=== PATIENT | female | born 2000 | race Caucasian/White ===

== ENCOUNTER → 2022-02-06 14:06 | Outpatient (BNVA) | payer SELFPAY | PROVIDERS: Family Provider Family Medicine; PCP Family Medicine; Visit Provider Nurse Practitioner Family | DX: R39.9 Unspecified symptoms and signs involving the genitourinary system (principal); N39.0 Urinary tract infection, site not specified | CPT/HCPCS: 81003; 87086 ==

== ENCOUNTER → 2023-10-29 13:06 | Outpatient (BNVA) | payer OTHER, SELFPAY | PROVIDERS: Family Provider Family Medicine; PCP Family Medicine; Visit Provider Emergency Medicine | DX: R39.9 Unspecified symptoms and signs involving the genitourinary system (principal); N30.01 Acute cystitis with hematuria | CPT/HCPCS: 81000 ==

== ENCOUNTER 2024-04-24 21:31 | Inpatient (IN) | payer OTHER, SELFPAY ==
[2024-04-24] VITALS (8 sets, daily range): BP systolic 119–144; BP diastolic 63–82; PULSE 95–108; RESP 18; TEMP 36.5; BMI 46.6
[2024-04-24] MEDS: ampicillin 2,000 MG in sodium chloride 0.9% (plus) 50 ML 100 MG IV (19:57)
[2024-04-24 20:08] LABS: Basophils % 0.2 %; Eosinophils # 0.3 10^3/uL (0.0-0.8); Eosinophils % 4.1 %; Hematocrit 37.4 % (36-47); Lymphocytes # 1.4 10^3/uL (0.8-4.8); Lymphocytes % 17.2 %; Mean Corpuscular HGB Conc 32.6 g/dL (30-55); Mean Corpuscular Hemoglobin 28.9 pg (27-33); Mean Corpuscular Volume 88.6 fl (85-98); Mean Platelet Volume 10.1 fL (7.4-10.4); Monocytes # 0.4 10^3/uL (0.2-0.9); Monocytes % 5.5 %; Neutrophils # 5.78 10^3/uL (1.8-7.7); Nucleated Red Blood Cells % 0 %; Platelet Count 187 10^3/cmm (157-399); Red Blood Count 4.22 10^6/uL (3.85-5.65); Red Cell Distribution Width 14.2 % (12.1-15.1); White Blood Count 8.03 10^3/uL (3.29-11.43)
[2024-04-24] MEDS: oxytocin 30 UNIT/500 ML BAG IV (22:34)
[2024-04-25] VITALS (71 sets, daily range): BP systolic 103–166; BP diastolic 54–83; PULSE 87–176; RESP 16–18; TEMP 36.3–37.1; O2SAT 96–100
[2024-04-25] MEDS: ampicillin 1,000 MG in sodium chloride 0.9% (plus) 50 ML 100 MG IV ×5 (00:28→16:31)
[2024-04-25] MEDS: lactated ringers 1,000 ML 999 ML (00:55)
[2024-04-25] MEDS: sodium chloride 0.9% 1,000 ML 999 ML IV ×2 (02:04→06:47)
--- NOTE | 2024-04-25 02:23 | ANES.PROC ---
Anesthesia Procedures Procedure/Date: 04/25/24 Epidural: Time Out Performed: Yes Consents Signed: Procedure Consent Consent: requested by attending/covering physician, from patient, risks and benefits reviewed and patient agrees to proceed Lumbar Level: L3-L4 Epidural position: sitting Epidural procedure: sterile prep of area, 1% lidocaine to numb the area, 18 g needle, neg for paresthesia, test dose given, 1.5% xylocaine 1:200k epi (5cc), 0.2% Ropivacaine bolus ml, placed PCEA, no systemic response, sterile dressing applied, L.U.D. no apparent complications and 0.2% Ropiavacaine @ mls/hr (5cc and Fentanyl 100mcg) Additional Comments: Pt tolerated well
--- NOTE | 2024-04-25 02:26 | ANES.PAUD2 ---
Pre-Anesthetic Update Pre-Anesthetic Assessment: Date of Surgery/Procedure: 04/25/24 Any changes to Pre-Anesthetic Assessment?: No Labs Last 48hrs: Short CBC 04/24/24 Range/Units 19:55 WBC 8.03 (3.29-11.43) 10^ 3/uL Hgb 12.20 (11.27-16.99) g/ dL Hct 37.4 (36-47) % MCV 88.6 (85-98) fl Plt Count 187 (157-399) 10^3/c mm Neut % (Auto) 72.0 % Neut # (Auto) 5.78 (1.8-7.7) 10^3/u L Blood Bank 04/24/24 19:55 Blood Type B Positive Rho(D) Type Rh positive Antibody Screen Negative Vitals: Temperature 97.8 F 04/25/24 00:37 Temperature Source Oral 04/25/24 00:37 Pulse Rate 111 H 04/25/24 02:23 Pulse Rhythm Regular 04/24/24 19:00 Pulse Strength 3+ Normal 04/24/24 19:00 Respiratory Rate 18 04/24/24 21:49 Respiratory Effort Spontaneous, Non- Labored 04/24/24 19:00 Respiratory Depth Normal 04/24/24 19:00 Respiratory Patter n Normal 04/24/24 19:00 Blood Pressure 133/73 04/25/24 02:23 Blood Pressure Pos ition Semi Fowlers 04/24/24 21:49 Pulse Oximetry 97 04/25/24 02:22 Oxygen Delivery Me thod Room Air 04/24/24 21:49 Cardiac Studies: No Data to Display
[2024-04-25] MEDS: ROPivacaine syringe 100 MG/50 ML SYRINGE 13 MG EPIDURAL ×5 (02:28→16:52)
[2024-04-25] MEDS: dextrose 5%-sod chloride 0.45% 1,000 ML 125 ML IV (06:22)
--- NOTE | 2024-04-25 12:42 | PM.OPHPUD ---
Labor & Delivery H&P Update Date of Procedure: April 25, 2024 Date H&P Performed: 04/24/24 Admission Diagnosis: IUP at 39 weeks 4 days gestation Spontaneous rupture membrane GBS positive Planned procedure: Expectant management of labor and delivery with ampicillin protocol.
--- NOTE | 2024-04-25 12:44 | PM.OBGYPN ---
SPEECH LANGUAGE PATHOLOGIST TRAVEL Subjective Subjective: Interval history: This is a 24-year-old G1, P0 at 39 weeks 4 days gestation who presented last evening with spontaneous rupture of membranes. She had clear fluid and was nitrazine positive however she was suspected to have a high leak because a forebag was felt to be present. She was admitted and allowed to walk. She did not make any cervical change after about 3 to 4 hours so she was started on high-dose Pitocin. She received an epidural for pain management. Overnight the infant had periods of minimal variability and some short periods of late decelerations but these seem to resolve with position changes. However overnight her strip was not reactive. I gave her a bolus and assessed for rupture membranes but the infant was too high this morning. While we are waiting for the to engage more she did have a period of reactivity. I presented back at lunchtime and the head was well engaged. I performed artificial rupture of membranes with clear fluid. heart tones are 145 with moderate variability. She is marisela about every 3 minutes. Labor: Station: -3 Amniotic Membrane Status: Bulging Monitor Mode: Palpation Contraction Pattern: Regular Status: Category I Vitals/I&O/Wt Last Vital Signs Temp 98.3 F 04/25/24 12:20 Pulse 100 04/25/24 12:38 Resp 16 04/25/24 12:20 BP 111/56 04/25/24 12:38 Pulse Ox 98 04/25/24 03:02 O2 Del Method Room Air 04/24/24 21:49 04/24/24 04/25/24 04/25/24 22:59 06:59 14:59 Intake Total 50 / 50 2266.016 / 2316.016 1196.917 / 1196.917 Output Total 300 / 300 Balance 50 / 50 1966.016 / 2016.016 1196.917 / 1196.917 Weight last 48 hrs Weight 135.171 kg Physical Exam Narrative: SVE 3 cm 90% effaced minus2 station Urinary Catheter Management: Henry: Cath Placed During This Visit: yes Reason for Continuing Indwelling Catheter: Required Immobilization for Trauma or Surgery or Anesthesia Urinary Catheter Date of Insertion: 04/25/24 Urinary Catheter Time of Insertion: 02:45 Data 04/24/24 19:55 A&P Assessment and plan (1) Active labor at term: (2) Group B Streptococcus carrier state affecting : She is already received multiple doses of ampicillin and will continue on ampicillin protocol Attestations Medical Necessity Statement*: Routine management of labor and delivery Coding Level of Care Code Acute Code for Chg Fwd Diagnoses Active labor at term Group B Streptococcus carrier state affecting O99.820
[2024-04-25] MEDS: acetaminophen 325 mg Tablet 650 MG PO (14:24)
[2024-04-25] MEDS: miSOPROStol 200 mcg Tablet 800 MCG PR (18:51)
[2024-04-25] MEDS: oxytocin 30 UNIT/500 ML BAG 600 UNIT IV (18:54)
--- NOTE | 2024-04-25 19:12 | P.PCNOB_ITS ---
Delivery Note: Date of delivery: April 25, 2024 Procedure: Normal spontaneous vaginal delivery Delivering Physician: Gayle Melgoza MD Estimated blood loss (mL): 400 Pre-Delivery Course: The patient had routine care at [facility]. Blood type B+ antibody negative, hepatitis B nonreactive, hepatitis C nonreactive, HIV nonreactive, rubella nonimmune, GC chlamydia negative, RPR nonreactive, UDS negative, Q harvey low risk, she passed her glucose tolerance test, she was GBS positive The patient was extremely edematous during the third trimester but maintained normal blood pressures. Delivery: This is a 24-year-old at 39 weeks 5 days gestation who is admitted with spontaneous rupture of membranes. Her labor was augmented using Pitocin. She received an epidural for pain management. She was noted to be GBS positive and received multiple doses of ampicillin prior to delivery. She had to push for about an hour and a half before having a normal spontaneous vaginal delivery of a viable female weight 8 pounds 12 ounces, 3995 g, Apgars 6 and 9 over an intact perineum. The was suctioned at delivery and placed on the mother's chest. She did have initial cry but then went limp. The cord was clamped and cut and she was handed to the waiting pediatric nurse. Cord blood was obtained. The placenta was delivered grossly intact and normal to inspection. There was a decent amount of bleeding the patient was given 800 mcg of Cytotec rectally. There was a second-degree right vaginal laceration that was sutured using 3-0 chromic. The right labia was also lacerated and sutured using 3-0 chromic. The left hymenal ring was macerated and an elongated torn portion was trimmed off. The left labia was also lacerated and was sutured using 3-0 chromic. Mother and infant were doing well after delivery A&P Assessment and plan (1) (normal spontaneous vaginal delivery): Coding Level of Care Code Acute Code for Chg Fwd Diagnoses (normal spontaneous vaginal delivery) O80
[2024-04-25] MEDS: lanolin oint 7 gm 1 APPLIC TOPICAL (20:31)
[2024-04-25] MEDS: ibuprofen 800 mg tablet PO (20:31)
[2024-04-25] MEDS: benzocaine-menthol 78 gm Canister 1 SPRAY TOPICAL (20:31)
[2024-04-26] VITALS (7 sets, daily range): BP systolic 103–139; BP diastolic 64–78; PULSE 79–100; RESP 16–18; TEMP 36.6–36.8; O2SAT 96–98
[2024-04-26 07:28] LABS: Hematocrit 29.7 % (36-47); Mean Corpuscular Hemoglobin 28.5 pg (27-33); Mean Corpuscular Volume 89.2 fl (85-98); Mean Platelet Volume 10.3 fL (7.4-10.4); Platelet Count 168 10^3/cmm (157-399); Red Blood Count 3.33 10^6/uL (3.85-5.65); Red Cell Distribution Width 14.4 % (12.1-15.1); White Blood Count 14.47 10^3/uL (3.29-11.43)
[2024-04-26] MEDS: ibuprofen 800 mg tablet PO (08:32)
[2024-04-26] MEDS: PRENATAL VIT NO.130/IRON/FOLIC 1 EACH TABLET PO (08:32)
[2024-04-26] MEDS: docusate sodium 100 mg Capsule PO ×2 (08:32→18:19)
--- NOTE | 2024-04-26 10:58 | ANE.PACU2 ---
Inpatient post-anesthesia follow up: Airway intact: Yes Vital signs: Temperature 97.9 F Pulse Rate 100 Respiratory Rate 18 Blood Pressure 103/64 Pulse Oximetry 98 Oxygen Delivery Me thod Room Air Oxygen Flow Rate Fraction of Inspir ed Oxygen Hydration adequate: Yes Nausea and vomiting: No Pain level: 1 Mental status: Baseline Epidural Start/End: Epidural Start Date: 04/25/24 Epidural Start Time: 02:04 Epidural End Date: 04/26/24 Epidural End Time: 01:17
--- NOTE | 2024-04-26 17:08 | P.DS_ITS ---
Discharge Providers Date of Admission: 04/25/24 12:44 Date of Discharge: April 26, 2024 Attending Provider at Admission: Gayle Melgoza MD Attending Provider at Discharge: Gayle Melgoza MD Primary Care Provider: Madan Boykin DO Diagnoses at Discharge Discharge Diagnosis (1) (normal spontaneous vaginal delivery): Status: Acute Reason for Visit Reason for Visit: IOL/Poss ROM Hospital Course Hospital Course This is a 24-year-old G1 now P1 who had a normal spontaneous vaginal delivery of a viable female . Mother has done well her bleeding is moderate. She is ambulating and tolerating a regular diet. She does have some extreme edema for which I am going to give her 1 dose of Lasix before she leaves. She did not have any elevated blood pressures or signs symptoms of preeclampsia therefore she should not be completely volume depleted. Physical Exam Const: OTHER: Alert and oriented, sitting in bedside couch, heart regular rate and rhythm, lungs clear to auscultation bilaterally, abdomen is soft and nontender, extremities have 4+ edema but no calf tenderness Urinary Catheter Management: Henry: Cath Placed During This Visit: yes, but has since been removed by the nurse Reason for Continuing Indwelling Catheter: Decision to DC Catheter Urinary Catheter Date of Insertion: 04/25/24 Urinary Catheter Time of Insertion: 02:45 Date Urinary Catheter Removed: 04/25/24 Time Urinary Catheter Discontinued: 17:40 Discharge Data Studies Completed and Pending Laboratory Results WBC 14.47 10^3/uL (3.29-11.43) H 04/26/24 06:45 RBC 3.33 10^6/uL (3.85-5.65) L 04/26/24 06:45 Hgb 9.50 g/dL (11.27-16.99) L 04/26/24 06:45 Hct 29.7 % (36-47) L 04/26/24 06:45 MCV 89.2 fl (85-98) 04/26/24 06:45 MCH 28.5 pg (27-33) 04/26/24 06:45 MCHC 32.0 g/dL (30-55) 04/26/24 06:45 RDW 14.4 % (12.1-15.1) 04/26/24 06:45 Plt Count 168 10^3/cmm (157-399) 04/26/24 06:45 MPV 10.3 fL (7.4-10.4) 04/26/24 06:45 Neut % (Auto) 72.0 % 04/24/24 19:55 Lymph % (Auto) 17.2 % 04/24/24 19:55 Mineral % (Auto) 5.5 % 04/24/24 19:55 Eos % (Auto) 4.1 % 04/24/24 19:55 Baso % (Auto) 0.2 % 04/24/24 19:55 Neut # (Auto) 5.78 10^3/uL (1.8-7.7) 04/24/24 19:55 Lymph # (Auto) 1.4 10^3/uL (0.8-4.8) 04/24/24 19:55 Mineral # (Auto) 0.4 10^3/uL (0.2-0.9) 04/24/24 19:55 Eos # (Auto) 0.3 10^3/uL (0.0-0.8) 04/24/24 19:55 Baso # (Auto) 0.0 10^3/uL (0.0-0.1) 04/24/24 19:55 Nucleated RBC % (auto) 0 % 04/24/24 19:55 Nucleated RBCs # 0.0 /100WBC 04/24/24 19:55 Blood Type B Positive 04/24/24 19:55 Rho(D) Type Rh positive 04/24/24 19:55 Antibody Screen Negative 04/24/24 19:55 Vitals Last Vital Signs Temp 98.2 F 04/26/24 12:45 Pulse 81 04/26/24 12:45 Resp 16 04/26/24 12:45 BP 125/72 04/26/24 12:45 Pulse Ox 98 04/26/24 04:45 O2 Del Method Room Air 04/26/24 04:45 Discharge Plan Discharge Patient Disposition: Home Condition: Stable Prescriptions: Continued Complete 14 mg iron- 400 mcg Tablet 1 tab PO DAILY Discharge Orders: Discharge Order (Routine); Ordered 04/26/24 Ordered By: Gayle Melgoza Referrals: Gayle Melgoza MD [Physician] - 06/07/24 10:30 am Discharge Diet: Usual diet Discharge Activity: Limit activity as instructed Patient Instructions: Depression (DC), Opioid Safety (DC), Preeclampsia and Eclampsia After Delivery (GEN), Hemorrhage (DC), OB Discharge Report, OB Food/Drug Interaction Guide, OB Care at Home, Opioid Safety, OB Vaginal Deliveries, Abnormal Bleeding Activity Restrictions/Additional Instructions: Nothing per vagina for 6 weeks Discharge Attestations Time Spent in Discharge Care*: less than 30 min Quality Metrics Clinical Quality Measures [ No reported AMI, CVA or VTE this stay] Coding Level of Care Code Acute Code for Chg Fwd Diagnoses (normal spontaneous vaginal delivery) O80
[2024-04-26] MEDS: FUROsemide 20 mg Tablet PO (18:19)
== END 2024-04-26 22:05 | disposition home or self-care (01) | DRG 806 ==
LOC: OPOB 21:31 → OBGYN 04-25 00:56
PROVIDERS: Admitting Provider Family Medicine; PCP Family Medicine; Visit Provider Family Medicine
DX: O76 Abnormality in fetal heart rate and rhythm complicating labor and delivery (principal); O72.1 Other immediate postpartum hemorrhage; Z37.0 Single live birth; O99.824 Streptococcus B carrier state complicating childbirth; Z3A.39 39 weeks gestation of pregnancy; O70.1 Second degree perineal laceration during delivery
CPT/HCPCS: 36415; 51702; 59409; 83986; 85025; 85027; 86850; 86900; G0378; J0290; J2590; J2795; J3010; J7030; J7120; J7799